=== PATIENT | male | born 1980 | race Caucasian/White ===

== ENCOUNTER 2017-08-03 17:50 | Emergency (ER) | payer MEDICAID ==
--- NOTE | 2017-08-03 18:00 | EDPHY ---
H & P Time Seen by Provider: 08/03/17 17:50 HPI/ROS: CHIEF COMPLAINT: Intoxication HISTORY OF PRESENT ILLNESS: The patient is a 30-year-old homeless man who was passed out on the street corner by Artem Mary. Bystanders called police. He has acquaintance who he has known for 2 hr who stated that they have been drinking heavily today. He denies, ingestants. The patient has not been cooperative and would not give his name. Paramedics gave him a sternal were up and he awoke and since then he has been rambling and uncooperative and slightly combative. REVIEW OF SYSTEMS: Unable to obtain secondary to condition EXAM: GENERAL: Disheveled, cooperative HEAD: Atraumatic, normocephalic. EYES: Pupils equal round and reactive to light, extraocular movements intact, sclera anicteric, conjunctiva are normal. ENT: nares patent, oropharynx clear without exudates. Moist mucous membranes. NECK: Normal range of motion, supple without lymphadenopathy or JVD. LUNGS: Breath sounds clear to auscultation bilaterally and equal. No wheezes rales or rhonchi. HEART: Regular rate and rhythm without murmurs, rubs or gallops. ABDOMEN: Soft, nontender, normoactive bowel sounds. No guarding, no rebound. No masses appreciated. BACK: No CVA tenderness, no spinal tenderness, step-offs or deformities EXTREMITIES: Normal range of motion, no pitting or edema. No clubbing or cyanosis. NEUROLOGICAL: Slurred speech, normal gait. 5/5 strength, normal movement in all extremities, normal sensation PSYCH: Uncooperative, jokes when asked questions SKIN: Warm, dry, normal turgor, no visible rashes or lesions. Source: Patient, EMS Exam Limitations: No limitations, Intoxication - Medical/Surgical History Hx Asthma: No Hx Chronic Respiratory Disease: No Hx Diabetes: No Hx Cardiac Disease: No Hx Renal Disease: No Hx Cirrhosis: No Hx Alcoholism: Yes - Family History Significant Family History: No pertinent family hx - Social History Alcohol Use: Heavy Constitutional: Initial Vital Signs Temperature (C) 36.8 C 08/03/17 17:50 Heart Rate 99 08/03/17 17:50 Respiratory Rate 18 08/03/17 17:50 Blood Pressure 134/97 H 08/03/17 17:50 O2 Sat (%) 96 08/03/17 17:50 O2 Delivery Mode Room Air Allergies/Adverse Reactions: Unable to Assess Allergy (Unverified 08/03/17 18:20) Home Medications: Medication Instructions Recorded Unobtainable 08/03/17 Medical Decision Making ED Course/Re-evaluation: 6:50 p.m. the patient is ambulating here in the emergency department. He is drinking Pepsi. He declines any workup or testing. He denies pain or injury. He is on a [facility] hold but we called the [facility] and he is not welcome there. Will discharge him to the street. Differential Diagnosis: Partial list of the Differential diagnosis considered include but were not limited to; intoxication, substance abuse and although unlikely based on the history and physical exam, I also considered head injury, infection. Departure - Departure Disposition: Home, Routine, Self-Care Clinical Impression: Alcoholic intoxication Qualifiers: Complication of substance-induced condition: uncomplicated Qualified Code(s): F10.920 - Alcohol use, unspecified with intoxication, uncomplicated Condition: Fair Instructions: Alcohol Intoxication (ED) Referrals: Patient,NotPresent [Unknown] - As per Instructions [facility],. [Clinic] - 2-3 days, call for appt.
[2017-08-03 18:23] VITALS: BP 134/97; PULSE 99; RESP 18; TEMP 98.2; O2SAT 96
== END 2017-08-03 18:53 | disposition home or self-care (01) ==
LOC: EDBD 17:50
DX: F10.129 Alcohol abuse with intoxication, unspecified (principal)